=== PATIENT | female | born 1965 | race Caucasian/White ===

== ENCOUNTER 2017-01-06 14:52 | Emergency (ER) | payer BC, OTHER ==
[~2017-01-06] VITALS: Wt 74.0 kg
[2017-01-06] MEDS ORDERED: ONDANSETRON (ODT) 4 MG TAB ODT STA (22:39)
[2017-01-06] MEDS ORDERED: morphine 10 MG INJ IV ONE (23:00)
--- NOTE | 2017-01-06 23:31 | RADRPT ---
PROCEDURE: US Pelvis. CLINICAL INDICATION: Pelvic pain and vaginal bleeding for 1 day TECHNIQUE: Multiple sonographic images of the pelvis were obtained utilizing a transabdominal and endovaginal technique. The images were reviewed on a PACS workstation. TECHNICAL NOTE: The examination is limited by excessive overlying bowel gas COMPARISON: None available FINDINGS: Uterus: Normal in size, contour and echogenicity with no evidence for myometrial masses. Size is est imated at 13.7 x 5.7 x 4.6 cm. Cervix: No abnormalities of significance are seen. Endometrium: Increased in thickness; 15.4 mm. Findings may be related to the patients phase of mens truation presumably a premenopausal state. There is no increased blood flow on Doppler interrogatio n. Right ovary / adnexa: The ovary is not visualized. There is no evidence of adnexal mass. Left ovary/adnexa: The ovary is not visualized. There is no evidence of adnexal mass. Cul-de-sac: No evidence of free fluid. RPTAT:HJJR IMPRESSION: 1. Limited examination because of bowel gas, the ovary is not visualized. 2. Endometrial thickness of 15.4 mm without hypervascular blood flow may be related to the patients phase of menstruation. Differential diagnostic possibilities would include submucosal leiomyoma an d endometrial polyp. 3. Grossly normal uterus. Physician Elizabeth Date Time Electronically viewed and signed by Physician Elizabeth on 01/06/2017 23:30 /
[2017-01-07] MEDS ORDERED: IBUP-1542 PO (00:14)
[2017-01-07] MEDS ORDERED: HYDR-906 PO (00:14)
[2017-01-07] MEDS ORDERED: TYL500 PO (00:24)
[2017-01-07 00:38] VITALS: BP 123/59; PULSE 72; RESP 16
--- NOTE | 2017-01-07 01:10 | ERD ---
ER Documentation Chief Complaint Date/Time DATE: 01/07/17 TIME: 01:05 Chief Complaint LOWER ABD PAIN SINCE LAST NIGHT WITH VAG BLEED. NO DYSURIA OR N/V HPI This is a 51-year-old female that presents to the ER with lower pelvic pain that started this morning. Patient has had dysfunctional uterine bleeding for the last 3 months. She had her menstruation from November 22 - December 12. She saw her IMAGING MANAGER and was given medication which regulated her period. Patient states that today she began to bleed once again and that she had severe pelvic cramping. Patient admits to nausea she denies vomiting. She did have some bouts of diarrhea. She denies fevers or chills. Pain is crampy in nature and radiates to her back. She denies any urinary frequency or dysuria. Patient is currently sexually active in a monogamous relationship with her . She denies any vaginal discharge. Patient states she has used 3 pads today. ROS 12 point review of systems was done, all negative except per HPI. Medications Home Meds Active Scripts Acetaminophen* (Tylenol*) 500 Mg Tab, 1000 MG PO Q8H Y for PAIN AND OR ELEVATED TEMP for 5 Days, TAB Prov:GISSELLE MONTERO 01/07/17 PMhx/Soc Medical and Surgical Hx: pt denies Surgical Hx History of Surgery: Yes () Anesthesia Reaction: No Hx Alcohol Use: No Hx Substance Use: No Hx Tobacco Use: No Smoking Status: Never smoker Physical Exam Vitals Vital Signs Date Time Temp Pulse Resp B/P Pulse Ox O2 Delivery O2 Flow Rate FiO2 01/07/17 00:38 72 16 123/59 98 Room Air 01/06/17 22:31 150/85 01/06/17 15:05 98.8 101 21 184/91 99 Physical Exam GENERAL: The patient is well developed and appropriate for usual state of health , in no apparent distress. HEENT: Atraumatic. CHEST: Clear to auscultation bilaterally. There are no rales, wheezes or rhonchi. HEART: Regular rate and rhythm. No murmurs, clicks, rubs or gallops. ABDOMEN: Soft, nontender and nondistended. Good bowel sounds. No rebound or guarding. No gross peritonitis. No gross organomegaly or masses. No Tariq sign or McBurney point tenderness. Tender to palpation to the suprapubic region NEURO: Alert and oriented. SKIN: There is no apparent rash or petechia. The skin is warm and dry. Results 24 hrs Current Medications Medications (Trade) Dose Ordered Sig/Jb Route PRN Reason Start Time Stop Time Status Last Admin Dose Admin Morphine Sulfate (morphine) 6 mg ONCE ONCE IV 01/06/17 23:00 01/06/17 23:01 DC 01/06/17 23:35 Ondansetron HCl (Zofran Odt) 4 mg ONCE STAT ODT 01/06/17 22:39 01/06/17 22:42 DC 01/06/17 23:35 Procedures/MDM This is a 51-year-old female that presents to the ER with pelvic cramping and vaginal bleeding. Patient was found to have a leiomyoma versus endometrial polyp on ultrasound. Patient also has had a recent history of dysfunctional uterine bleeding. Patient started bleeding today is only used 3 pads. She is well-appearing. She has denied dizziness or weakness I doubt severe anemia. Patient's pelvic pain was controlled here in the ER. Patient for ovarian torsion torsion, tubo-ovarian abscess, acute abdomen is low. Patient is afebrile and well-appearing. Patient stated she only wanted Tylenol for her pain she did not want any narcotics. She will be sent home with Tylenol. She is to follow-up with her primary care doctor within 1-2 days return to ER sooner if symptoms worsen. Medical decision making sure with the patient understands and agrees with plan. Departure Diagnosis: Primary Impression: Dysfunctional uterine bleeding Condition: Stable Patient Instructions: Dysfunctional Uterine Bleeding Additional Instructions: Call your primary care doctor TOMORROW for an appointment during the next 1-2 days.See the doctor sooner or return here if your condition worsens before your appointment time. GISSELLE MONTERO Jan 07, 2017 01:10
== END 2017-01-07 00:39 | disposition home or self-care (01) ==
LOC: FTE 14:52
DX: N93.8 Other specified abnormal uterine and vaginal bleeding (principal); R11.0 Nausea
CPT/HCPCS: 76830; 76856; 96374; 99285; J2270